=== PATIENT | male | born 1970 | race Hispanic/Latino ===

== ENCOUNTER → 2018-12-17 | Outpatient (CLI) | payer OTHER ==
[~2018-12-17] MED LIST: LEVO200T10 PO; METO-391 PO; NITR0.4T SL; WARF-57 PO
== END | disposition home or self-care (01) ==
LOC: SHCH 08:56
PROVIDERS: ATTEND Internal Medicine Cardiovascular Disease
DX: R00.1 Bradycardia, unspecified (principal); I48.2 Chronic atrial fibrillation; Z95.0 Presence of cardiac pacemaker
CPT/HCPCS: 93306

== ENCOUNTER 2018-12-31 07:29 | Day surgery (SDC) | payer OTHER ==
[2018-12-29 15:19] LABS: BASOPHILS % (AUTO) 0.8 % (0.0-5.0); EOSINOPHILS % (AUTO) 1.2 % (0.0-8.0); HEMATOCRIT 53.1 % (42-54); LYMPHOCYTES % (AUTO) 17.6 % (21.0-51.0); MEAN CORPUSCULAR HEMOGLOBIN 31.6 pg (27.0-33.0); MEAN CORPUSCULAR HGB CONC 34.4 g/dL (32.0-36.0); MEAN CORPUSCULAR VOLUME 91.9 fL (79-99); MONOCYTES % (AUTO) 7.3 % (3.0-13.0); NEUTROPHILS % (AUTO) 73.1 % (40.0-77.0); NUCLEATED RED BLOOD CELLS 0.1 % (0.0-0.19); PLATELET COUNT (AUTO) 169 K/uL (130-400); RED BLOOD CELL COUNT(AUTO) 5.77 MIL/uL (4.50-6.20); RED CELL DISTRIBUTION WIDTH 13.1 % (11.0-15.5)
[2018-12-29 15:27] VITALS: BP 130/79
[2018-12-29 15:29] LABS: POTASSIUM 4.5 mmol/L (3.5-5.1)
[2018-12-29 15:30] LABS: INR 1.95 (0.85-1.15); PARTIAL THROMBOPLASTIN TIME 38.5 SEC (26.3-35.5); PROTHROMBIN TIME 20.2 SEC (9.6-11.6)
--- NOTE | 2018-12-30 09:55 | NUR ---
ABNORMAL LABS NOTIFIED CRISTO LIZAMA OF PT'S PT 20.2, INR 1.95, PTT 38.5, STATES HE WILL CALL ME BACK.
--- NOTE | 2018-12-30 10:37 | NUR ---
NOTE CALL BACK FROM [facility] RE REPORTED ABNORMAL LABS. NO FURTHER ORDERS GIVEN. OKAY TO PROCEED.
--- NOTE | 2018-12-30 14:27 | NUR ---
NOTE CLARIFICATION ON [employer]. PER SONJA, DR. RAVI STATED TO CHANGE FROM [facility] TO [facility].
[2018-12-31] VITALS (12 sets, daily range): BP systolic 114–128; BP diastolic 72–89
[~2018-12-31] VITALS: Ht 175.3 cm; Wt 106.1 kg
[~2018-12-31 07:29] MED LIST changes: +SODIUM CHLORIDE 0.9% 1000ML 1,000 ML IV SCH
--- NOTE | 2018-12-31 08:39 | NUR ---
paged doctor marleni to pager [phone], no call back in regards to pt with cough, no fever, no body chills or no sputum reported by patient, pt reported he was on a caty inhibitor before but was told to stop a month ago.
[2018-12-31 09:58] LABS: INR 1.17 (0.85-1.15); PROTHROMBIN TIME 12.2 SEC (9.6-11.6)
[2018-12-31] MEDS ORDERED: BUPIVACAINE/PF 0.25% 30ML VIAL IJ ONE (12:32)
[2018-12-31] MEDS ORDERED: LIDOCAINE HCL 1% 20 ML VIAL ONE (12:32)
[2018-12-31] MEDS ORDERED: CEFAZOLIN SODIUM 1 GM VIAL ONE ×2 (12:32→12:39)
[2018-12-31] MEDS ORDERED: MIDAZOLAM HCL 1 MG/ML 2ML VIAL ONE (12:51)
[2018-12-31] MEDS ORDERED: FENTANYL CITRATE PF 50 MCG/1 ML 2ML VIAL ONE (12:51)
--- NOTE | 2018-12-31 13:42 | NUR ---
late entry pt arrived from [employer], dressing to left chest wall slight bleeding noted, soft, no swelling noted. No concerns voiced at this moment.
--- NOTE | 2018-12-31 14:45 | NUR ---
gave report to Leanne no concerns voiced. introduced nurse to patient and family
--- NOTE | 2018-12-31 14:50 | NUR ---
SITE CHECK SITE TO LEFT UPPER CHEST SOFT TO TOUCH. NO BLEEDING, OOZING NOTED TO SITE. PRESSURE DRSG IN PLACE. Addendum: 12/31/18 at 1608 by RAHEL EGAN RN RN NO PRESSURE DRSG IN PLACE
--- NOTE | 2018-12-31 14:50 | NUR ---
REPORT REPORT RECEIVED FROM Yolanda KENDALL RN. PT IN BED. SITE TO LEFT UPPER CHEST SOFT TO TOUCH. NO BLEEDING, OOZING NOTED TO SITE. SCANT BLOOD NOTED TO SITE. DRIED. NO NEW BLEEDING
--- NOTE | 2018-12-31 15:20 | NUR ---
SITE CHECK SITE TO LEFT UPPER CHEST SOFT TO TOUCH. NO BLEEDING, OOZING NOTED TO SITE. PRESSURE DRSG IN PLACE. Addendum: 12/31/18 at 1607 by RAHEL EGAN RN RN NO PRESSURE DRSG IN PLACE
--- NOTE | 2018-12-31 15:50 | NUR ---
SITE CHECK SITE TO LEFT UPPER CHEST SOFT TO TOUCH. NO BLEEDING, OOZING NOTED TO SITE.
--- NOTE | 2018-12-31 16:50 | NUR ---
SITE CHECK SITE TO LEFT UPPER CHEST SOFT TO TOUCH. NO BLEEDING, OOZING NOTED TO SITE.
--- NOTE | 2018-12-31 17:45 | NUR ---
DISCHARGE ORAL AND WRITTEN DISCHARGE INSTRUCTIONS GIVEN TO PT AND PTS . VERBALIZED UNDERSTANDING ABOUT WARFARIN AND KEFLEX. SITE TO LEFT UPPER CHEST SOFT TO TOUCH. NO BLEEDING, OOZING NOTED TO SITE.
== END 2018-12-31 17:50 | disposition home or self-care (01) ==
LOC: DAH 07:29
PROVIDERS: ATTEND Internal Medicine Cardiovascular Disease
DX: Z45.010 Encounter for checking and testing of cardiac pacemaker pulse generator [battery] (principal); Z79.899 Other long term (current) drug therapy; I34.0 Nonrheumatic mitral (valve) insufficiency; I42.9 Cardiomyopathy, unspecified; I48.91 Unspecified atrial fibrillation; I10 Essential (primary) hypertension; G47.33 Obstructive sleep apnea (adult) (pediatric); Z86.73 Personal history of transient ischemic attack (TIA), and cerebral infarction without residual deficits; Z68.34 Body mass index [BMI] 34.0-34.9, adult; E03.9 Hypothyroidism, unspecified; Z88.2 Allergy status to sulfonamides; Z79.01 Long term (current) use of anticoagulants
CPT/HCPCS: 33227; 36415 ×2; 80048; 85025; 85610 ×2; 85730; 93005; A4606; C1786; J0690 ×2; J2250; J3010; J3490; 33262; 99156; 99157